=== PATIENT | female | born 1970 | race Caucasian/White ===

== ENCOUNTER → 2016-11-10 | Day surgery (SDC) | payer BC ==
[2016-10-25 12:13] VITALS: Ht 157.5 cm; Wt 56.8 kg
[~2016-11-10] VITALS: Ht 157.5 cm; Wt 56.8 kg
[~2016-11-10] MED LIST: CALC-354 PO; CYCL10TA6 PO; GABA-112 PO; GABA-1218 PO; LETR2TAB PO; PRED10TA PO
== END | disposition home or self-care (01) ==
LOC: C.PAT 13:45 → EDSTATUS 15:30
PROVIDERS: ATTEND Physical Medicine & Rehabilitation
DX: M54.16 Radiculopathy, lumbar region (principal); Z53.9 Procedure and treatment not carried out, unspecified reason

== ENCOUNTER → 2017-02-15 | Day surgery (SDC) | payer BC ==
[2017-02-14 08:53] VITALS: Ht 154.9 cm; Wt 56.8 kg
[~2017-02-15] VITALS: Ht 154.9 cm; Wt 56.8 kg
[~2017-02-15] MED LIST changes: -GABA-1218 PO; +IOPAMIDOL INJ 61% 15 ML VIAL ONE; +LIDOCAINE HCL 1% MPF 5 ML VIAL ONE; +SODIUM CHLORIDE 0.9% INJ 10 ML VIAL ONE
--- NOTE | 2017-02-15 14:47 | History & Physical Bridge - [place] ---
H&P Re-Evaluation Bridge Note: I have examined the patient, reviewed the History & Physical and in the interval since the performance of the History & Physical I have noted the following changes of clinical significance: No changes noted
[2017-02-15 15:12] VITALS: TEMP 36.6
--- NOTE | 2017-02-15 15:17 | Discharge Instructions ---
Discharge Instructions Date of Service Feb 15, 2017. Visit Reason for Visit: Lumbar Radiculopathy Discharge Discharge Diagnosis / Problem: left leg pain Discharge Goals Goal(s): Decrease discomfort, Improve function Activity Recommendations Activity Limitations: resume your previous activity Anesthesia . Post Anesthesia Instructions: If you have had General Anesthesia or IV Sedation: * Do not drive today. * Resume driving when surgeon permits. * Do not make important decisions or sign legal documents today. * Call surgeon for: 1. Temperature elevations greater than 101 degrees F. 2. Uncontrollable pain. 3. Excessive bleeding. 4. Persistent nausea and vomiting. 5. Medication intolerance (nausea, vomiting or rash). * For nausea and vomiting use only clear liquids such as: tea, soda, bouillon until nausea subsides, then gradually increase diet as tolerated. * If you have any concerns or questions, call your surgeon's office. If physician is unavailable and it is an emergency, call 911 or go to the nearest emergency room. . Diet Recommendations Recommended Home Diet: resume previous diet Procedures Procedures Performed: LUMBAR EPIDURAL STEROID INJECTION Pending Studies Studies pending at discharge: no Medical Emergencies . Who to Call and When: Medical Emergencies: If at any time you feel your situation is an emergency, please call 911 immediately. . Non-Emergent Contact Non-Emergency issues call your: Specialist . . "Provider Documentation" section prepared by Yonatan Davis. .
[2017-02-15 15:20] VITALS: BP 109/74; PULSE 72; O2SAT 97
--- NOTE | 2017-02-15 15:36 | OPERATIVE REPORT ---
DATE OF OPERATION: 02/15/2017 PREOPERATIVE DIAGNOSIS: L4-L5 disk extrusion with a left L5 radiculopathy. POSTOPERATIVE DIAGNOSIS: Same. PROCEDURE: Left L5-S1 paramedian intralaminar epidural steroid injection under fluoroscopic guidance. INDICATIONS: The patient is a 47-year-old white female who has not responded to conservative treatment for a disk extrusion and is developing intractable radicular pain and back pain. She presents today for an epidural injection to provide her with some relief. PHYSICAL EXAMINATION: Pleasant female, who is uncomfortable, prefers to stand rather than sit. She has a significant radicular sensations down the leg, but no obvious focal weakness. CONSENT: Verbal and written consent was obtained from the patient. Risks and benefits were reviewed. Risks include, but are not limited to epidural abscess, epidural hematoma, allergic reaction, and dural puncture. The patient wishes to proceed. DESCRIPTION OF PROCEDURE: The patient was taken back to the special procedures room of the [facility]. She was maintained in a prone position. Backside was cleansed with Betadine x3. Dry sterile dressing was applied. Fluoroscope was used to identify the L5-S1 intralaminar space. Overlying skin on the left side was anesthetized with 4 mL of lidocaine 1%, 25-gauge 1-1/2 inch needle. A 22-gauge 3-1/2 inch Tuohy needle was then directed down towards the intralaminar space. It was advanced under lateral fluoroscopic guidance. The loss of resistance was noted at 5.5 cm. Isovue 300 contrast 0.5 mL was injected, which demonstrated it to be in the soft tissues. It was advanced to just over 7-cm depth, where another loss of resistance was noted. She then underwent injection of 0.5 mL of Isovue 300 contrast, which demonstrated epidural uptake pattern. She then underwent injection after negative aspiration of 40 mg of Depo-Medrol and 4 mL of preservative free sodium chloride very slowly because of reproduction of a familiar transient radicular sensation. DISPOSITION: 1. The patient was taken out into the discharge recovery area, where she will be discharged home once discharge criteria have been met. 2. Follow up in the [facility] office in 2-4 weeks. I attest to the content of the Intraoperative Record and any orders documented therein. Any exception s are noted below.
== END | disposition home or self-care (01) ==
LOC: X.SURG 13:50
PROVIDERS: ATTEND Physical Medicine & Rehabilitation
DX: M51.26 Other intervertebral disc displacement, lumbar region (principal); M54.16 Radiculopathy, lumbar region

== ENCOUNTER → 2017-03-24 | Outpatient (CLI) | payer BC ==
[~2017-03-24] MED LIST changes: -IOPAMIDOL INJ 61% 15 ML VIAL ONE; -LIDOCAINE HCL 1% MPF 5 ML VIAL ONE; -SODIUM CHLORIDE 0.9% INJ 10 ML VIAL ONE
--- NOTE | 2017-03-24 15:25 | DIAGNOSTIC IMAGING REPORT ---
MRI OF THE LUMBAR SPINE WITHOUT CONTRAST CLINICAL HISTORY: Back pain. Herniated disc. Left lower extremity radiculopathy. COMPARISON STUDY: No previous studies for comparison. TECHNIQUE: Utilizing a 1.5 Brittney magnet and dedicated coil, multiplanar, multiecho imaging of the lumbar spine was performed without IV contrast. FINDINGS: For purposes of numbering on this exam, the L5-S1 disc space is assigned to axial image 23 of 25. Alignment of lumbar spine is anatomic. Vertebral body heights are maintained. Scattered lesions within the spine likely reflect hemangiomas. The conus terminates at the L1-L2 level. Paravertebral soft tissues are unremarkable. L1-2: The central canal and neural foramen are patent. L2-3: The central canal and neural foramen are patent. L3-4: There is desiccation of the disc with mild disc space narrowing. There is a left paracentral disc extrusion with inferior subligamentous migration. The disc herniation measures 1.4 x 0.7 x 0.8 cm and results in moderate narrowing of the left lateral recess with mass effect upon the descending left L4 nerve root. The right neural foramen is patent. L4-5: The central canal and neural foramen are patent. There is an annular tear. L5-S1: The central canal is patent. There is mild narrowing of the left neural foramen. IMPRESSION: 1. Left paracentral disc extrusion with inferior subligamentous migration at L3-L4 which results in moderate narrowing of the left lateral recess with mass effect upon the descending left L4 nerve root. This could be correlated with left L4 radiculopathy. 2. Mild narrowing of the left L5-S1 neural foramen. Electronically signed by: Reilly Wood M.D. 03/24/2017 3:24 PM Dictated Date/Time: 03/24/2017 2:41 PM
== END | disposition home or self-care (01) ==
LOC: C.MRI 13:47
PROVIDERS: ATTEND Orthopaedic Surgery
DX: M54.16 Radiculopathy, lumbar region (principal); M51.26 Other intervertebral disc displacement, lumbar region

== ENCOUNTER → 2017-06-08 | Day surgery (SDC) | payer BC ==
[2017-05-12 14:59] VITALS: Ht 154.9 cm; Wt 56.8 kg
[~2017-06-08] VITALS: Ht 154.9 cm; Wt 56.8 kg
[~2017-06-08] MED LIST changes: -CYCL10TA6 PO; -GABA-112 PO; -PRED10TA PO
== END | disposition home or self-care (01) ==
LOC: C.PAT 13:03 → EDSTATUS 14:30
PROVIDERS: ATTEND Physical Medicine & Rehabilitation
DX: M54.16 Radiculopathy, lumbar region (principal)